=== PATIENT | female | born 1950 | race Two or more races ===

== ENCOUNTER 2016-07-09 13:15 | Outpatient (CLI) | payer MEDICARE, OTHER ==
[~2016-07-09 13:15] MED LIST: AMLO5TAB2 PO; LISI-607 PO; METF500T4 PO
== END 2016-07-09 23:59 | disposition home or self-care (01) ==
LOC: WOU 13:15
PROVIDERS: ATTEND Specialist
DX: K62.7 Radiation proctitis (principal); K64.4 Residual hemorrhoidal skin tags; Z85.038 Personal history of other malignant neoplasm of large intestine; E11.9 Type 2 diabetes mellitus without complications
CPT/HCPCS: G0463

== ENCOUNTER 2016-08-06 14:05 | Outpatient (CLI) | payer MEDICARE, OTHER | END 2016-08-06 23:59 | disposition home or self-care (01) | DX: K62.7 Radiation proctitis (principal); K64.4 Residual hemorrhoidal skin tags; Y84.2 Radiological procedure and radiotherapy as the cause of abnormal reaction of the patient, or of later complication, without mention of misadventure at the time of the procedure; Y78.1 Therapeutic (nonsurgical) and rehabilitative radiological devices associated with adverse incidents; Y92.89 Other specified places as the place of occurrence of the external cause; Z85.038 Personal history of other malignant neoplasm of large intestine; R85 Abnormal findings in specimens from digestive organs and abdominal cavity; S31.831D Laceration without foreign body of anus, subsequent encounter; X58.XXXD Exposure to other specified factors, subsequent encounter ==

== ENCOUNTER 2016-09-03 12:51 | Outpatient (CLI) | payer MEDICARE, OTHER | END 2016-09-03 23:59 | disposition home or self-care (01) | LOC: WOU 12:51 | PROVIDERS: ATTEND Specialist | DX: L59.8 Other specified disorders of the skin and subcutaneous tissue related to radiation (principal); K52.0 Gastroenteritis and colitis due to radiation; Y84.2 Radiological procedure and radiotherapy as the cause of abnormal reaction of the patient, or of later complication, without mention of misadventure at the time of the procedure; Y78.1 Therapeutic (nonsurgical) and rehabilitative radiological devices associated with adverse incidents; Y92.89 Other specified places as the place of occurrence of the external cause; K62.7 Radiation proctitis; K64.4 Residual hemorrhoidal skin tags; Z88.6 Allergy status to analgesic agent; Z85.038 Personal history of other malignant neoplasm of large intestine; E11.9 Type 2 diabetes mellitus without complications; Z79.84 Long term (current) use of oral hypoglycemic drugs; Z79.899 Other long term (current) drug therapy | CPT/HCPCS: G0463 ==